=== PATIENT | female | born 1970 | race Caucasian/White ===

== ENCOUNTER 2017-05-11 08:00 | Outpatient (CLI) | payer BC | END 2017-05-11 08:01 | disposition home or self-care (01) | LOC: BICMAMMO 08:00 | PROVIDERS: ATTEND Obstetrics & Gynecology | DX: Z12.31 Encounter for screening mammogram for malignant neoplasm of breast (principal) | CPT/HCPCS: 77063; 77067; G0202 ==

== ENCOUNTER 2017-11-22 16:52 | Outpatient (CLI) | payer BC | END 2017-11-22 16:53 | disposition home or self-care (01) | LOC: BICRAD 16:52 | PROVIDERS: ATTEND Internal Medicine Cardiovascular Disease | DX: I48.0 Paroxysmal atrial fibrillation (principal); I51.7 Cardiomegaly; Z95.810 Presence of automatic (implantable) cardiac defibrillator | CPT/HCPCS: 71046 ==

== ENCOUNTER 2018-05-14 10:54 | Outpatient (CLI) | payer BC | END 2018-05-14 10:55 | disposition home or self-care (01) | LOC: BICMAMMO 10:54 | PROVIDERS: ATTEND Obstetrics & Gynecology | DX: Z12.31 Encounter for screening mammogram for malignant neoplasm of breast (principal) | CPT/HCPCS: 77063; 77067 ==

== ENCOUNTER 2018-08-02 11:57 | Outpatient (CLI) | payer BC ==
--- NOTE | 2018-08-02 13:54 | RAD ---
CHEST TWO VIEWS: HISTORY: Upper respiratory infection. COMPARISON: 11/22/2017 FINDINGS: Enlarged cardiac silhouette. The pulmonary vessels and hilum are normal. The costophrenic angles ar e clear. No mass or consolidation. No pneumothorax or osseous abnormalities. Stable left-sided def ibrillator. IMPRESSION: Cardiomegaly without evidence of congestive heart failure. POS: [facility]
== END 2018-08-02 11:58 | disposition home or self-care (01) ==
LOC: RAD 11:57
PROVIDERS: ATTEND Nurse Practitioner Family
DX: J06.9 Acute upper respiratory infection, unspecified (principal); I51.7 Cardiomegaly
CPT/HCPCS: 71046

== ENCOUNTER 2019-04-02 08:12 | Outpatient (CLI) | payer BC ==
--- NOTE | 2019-04-02 09:19 | BD ---
DEXA BONE DENSITY STUDY: HISTORY: Postmenopausal. FINDINGS: Lumbar Spine: BMD (g/cm2) L1 1.105 T-Score: +1.0 L2 1.135 T-Score: +1.0 L3 1.159 T-Score: +0.7 L4 1.135 T-Score: +0.7 L1-L4 1.135 T-Score: +0.8 Femoral Neck: 0.950 T-Score: +0.9 Total Femur: 1.076 T-Score: +1.1 Impression: Normal bone mineral density of the lumbar spine and left femoral neck. POS: [facility]
== END 2019-04-02 08:13 | disposition home or self-care (01) ==
LOC: BICMAMMO 08:12
PROVIDERS: ATTEND Family Medicine
DX: Z13.820 Encounter for screening for osteoporosis (principal)
CPT/HCPCS: 77080

== ENCOUNTER 2019-04-29 08:20 | Outpatient (CLI) | payer BC ==
--- NOTE | 2019-04-29 08:49 | ULT ---
US Renal Bilateral STANDARD: 04/29/2019 12:00 AM CLINICAL HISTORY: Chronic kidney disease. STUDY: Renal ultrasound COMPARISON: None. FINDINGS: Right kidney: Echogenicity: Normal. Masses/cysts: None. Hydronephrosis: None. Calcifications: None. Length: 9.4 cm Left kidney: Echogenicity: Normal. Masses/cysts: None. Hydronephrosis: None. Calcifications: None. Length: 9.7 cm The urinary bladder was not visualized. IMPRESSION: Unremarkable renal ultrasound
== END 2019-04-29 08:21 | disposition home or self-care (01) ==
LOC: BICULT 08:20
PROVIDERS: ATTEND Internal Medicine Nephrology
DX: N18.4 Chronic kidney disease, stage 4 (severe) (principal)
CPT/HCPCS: 76770

== ENCOUNTER 2019-05-16 08:22 | Outpatient (CLI) | payer BC ==
--- NOTE | 2019-05-16 09:38 | MMO ---
Bilateral MAMMO Bilat Screen [facility]. CLINICAL HISTORY: Patient is 48 years old and is seen for screening. The patient has no family history of breast cancer. The patient has no personal history of cancer. VIEWS: The views performed were: bilateral craniocaudal with tomosynthesis; bilateral mediolateral oblique; and bilateral mediolateral oblique with tomosynthesis. FILMS COMPARED: The present examination has been compared to prior imaging studies performed at [facility] on 05/06/2014, 05/05/2016, 05/11/2017 and 05/14/2018. This study has been interpreted with the assistance of computer-aided detection. MAMMOGRAM FINDINGS: There are scattered fibroglandular densities. Cardiac pacer pack at Left axillary tail. There are no suspicious masses, suspicious calcifications, or new areas of architectural distortion. IMPRESSION: THERE IS NO MAMMOGRAPHIC EVIDENCE OF MALIGNANCY. A ROUTINE FOLLOW-UP MAMMOGRAM IN 1 YEAR IS RECOMMENDED. THE RESULTS OF THIS EXAM WERE SENT TO THE PATIENT. ACR BI-RADS Category 2 - Benign finding MAMMOGRAPHY NOTE: 1. A negative mammogram report should not delay a biopsy if a dominant of clinically suspicious mass is present. 2. Approximately 10% to 15% of breast cancers are not detected by mammography. 3. Adenosis and dense breasts may obscure an underlying neoplasm. Reported by: BALDOMERO DOTY MD Electonically Signed: [id number]
== END 2019-05-16 08:23 | disposition home or self-care (01) ==
LOC: BICMAMMO 08:22
PROVIDERS: ATTEND Obstetrics & Gynecology
DX: Z12.31 Encounter for screening mammogram for malignant neoplasm of breast (principal)
CPT/HCPCS: 77063; 77067

== ENCOUNTER 2020-08-10 12:09 | Emergency (ER) | payer BC ==
[2020-08-10 12:30] LABS: Actual Bicarbonate (HCO3v) 26 mEq/L (22-28); Analyzer IN Cardio ER; Calcium, Ionized (venous) 1.16 mmol/L (1.16-1.32); Chloride (VBG) 106 mmol/L (98-106); Hemoglobin (Hb) 11.9 g/dL (11.7-16.0); Potassium (VBG) 4.75 mmol/L (3.70-5.30); Sodium 137.7 mmol/L (133-146); pH (venous) 7.35 (7.32-7.43)
[2020-08-10 12:54] LABS: INR-International Normal Ratio 2.1; Prothrombin Time 23.7 sec (12.0-14.7)
[2020-08-10 12:55] LABS: PTT 44.6 sec (22.9-36.1)
[2020-08-10 13:14] LABS: Digoxin 2.98 ng/mL (0.8-2.0)
[2020-08-10] MEDS ORDERED: Amiodarone 450 MG, Admixture Fee 1 EACH in Dextrose 5% in Water 250 ML IVPB SCH (13:30)
[2020-08-10] MEDS ORDERED: Amiodarone 150 MG, Admixture Fee 1 EACH in Dextrose 5% in Water 100 ML IVPB SCH (13:30)
[2020-08-10 13:47] LABS: #Basophils 0.1 thou/uL (0.0-0.2); #Eosinphils 0.9 thou/uL (0.0-0.7); #Monocytes 0.6 thou/uL (0.11-0.59); #Neutrophils 5.5 thou/uL (1.40-6.50); %Basophils 0.7 % (0.0-1.0); %Eosinophils 11.1 % (0.0-10.0); %Lymphocytes 12.2 % (21.0-51.0); %Monocytes 7.7 % (0.0-10.0); %Neutrophils 68.4 % (42.0-75.0); Mean Corpuscular Hemoglobin 30.6 pg (27.0-31.0); Mean Corpuscular Volume 92.8 fL (78.0-98.0); Mean Platelet Volume 7.7 fL (7.4-10.4); Platelet Count 198 thou/uL (130-400); RBC Distribution Width 14.8 % (11.5-14.5); Red Blood Cell (RBC) Count 3.58 mill/uL (4.20-5.40)
[2020-08-10 14:03] LABS: ALT (SGPT) 13 U/L (8-55); AST (SGOT) 17 U/L (5-34); Albumin 3.8 g/dL (3.5-5.0); Alkaline Phosphatase 92 U/L (40-110); Anion Gap 13 mmol/L (10-20); BUN (Urea Nitrogen) 40 mg/dL (9.8-20.1); Bilirubin, Total 0.4 mg/dL (0.2-1.2); Calc. Creatinine Clearance 0 mL/min (70-130); Calcium 8.9 mg/dL (7.8-10.44); Carbon Dioxide 25 mmol/L (22-29); Chloride 106 mmol/L (98-107); Globulin 3.1 g/dL (2.4-3.5); Glucose 86 mg/dL (70-105); Potassium 4.9 mmol/L (3.5-5.1); Protein, Total 6.9 g/dL (6.0-8.3); Sodium 139 mmol/L (136-145)
== END 2020-08-10 13:51 | disposition short-term general hospital (02) ==
LOC: ERS 12:09
DX: I47.2 Ventricular tachycardia (principal); Z95.811 Presence of heart assist device; E28.2 Polycystic ovarian syndrome; E03.9 Hypothyroidism, unspecified; Z79.899 Other long term (current) drug therapy; Z79.01 Long term (current) use of anticoagulants; Z79.82 Long term (current) use of aspirin
CPT/HCPCS: 71045; 80053; 80162; 82805; 83010; 83615; 84484; 85025; 85610; 85730; 93005; 93798; 94760; J0282; J7070

== ENCOUNTER 2020-10-06 15:04 | Outpatient (CLI) | payer BC | END 2020-10-06 15:05 | disposition home or self-care (01) | LOC: BICMAMMO 15:04 | PROVIDERS: ATTEND Internal Medicine Cardiovascular Disease | DX: Z13.820 Encounter for screening for osteoporosis (principal); I42.0 Dilated cardiomyopathy | CPT/HCPCS: 77080 ==

== ENCOUNTER 2020-10-26 14:15 | Outpatient (CLI) | payer BC | END 2020-10-26 14:16 | disposition home or self-care (01) | LOC: BICMAMMO 14:15 | PROVIDERS: ATTEND Obstetrics & Gynecology | DX: Z12.31 Encounter for screening mammogram for malignant neoplasm of breast (principal) | CPT/HCPCS: 77063; 77067 ==